=== PATIENT | female | born 1975 | race Two or more races ===

== ENCOUNTER → 2023-11-24 08:49 | Outpatient (REF) | payer BC, SELFPAY | LOC: RAD 08:49 | PROVIDERS: ATTENDING PHYSICIAN Otolaryngology; FAMILY PHYSICIAN Family Medicine | DX: K21.00 Gastro-esophageal reflux disease with esophagitis, without bleeding (principal) | CPT/HCPCS: 74221 ==

== ENCOUNTER → 2023-12-04 12:39 | Outpatient (REF) | payer BC, SELFPAY | LOC: RAD 12:39 | PROVIDERS: ATTENDING PHYSICIAN Otolaryngology; FAMILY PHYSICIAN Family Medicine | DX: R49.0 Dysphonia (principal); J38.01 Paralysis of vocal cords and larynx, unilateral; R07.0 Pain in throat | CPT/HCPCS: 70491; Q9967 ==